=== PATIENT | male | born 1995 | race Caucasian/White ===

== ENCOUNTER 2016-04-29 07:50 | Emergency (ER) | payer BC ==
[~2016-04-29] VITALS: Ht 175.3 cm; Wt 77.1 kg
[2016-04-29 07:50] VITALS: BP 139/69; PULSE 87; RESP 18; TEMP 98.2; O2SAT 98
--- NOTE | 2016-04-29 07:50 | NUR ---
BROUGHT BACK TO BED #7 AND TRIAGED. REPORT GIVEN TO DWAYNE
--- NOTE | 2016-04-29 07:58 | NUR ---
PT AAO X 4 C/O BUMP ON R AXILLAE.WARM TO TOUCH AND TENDER TO PALPATION.PT DENIES OTHER MED HX.
--- NOTE | 2016-04-29 08:00 | NUR ---
ER at bedside examining patient.
--- NOTE | 2016-04-29 08:27 | NUR ---
PT TO RECEIVE I&D FOR ABSCESS
--- NOTE | 2016-04-29 08:45 | NUR ---
PT TOLERATED PROCEDURE WELL.
[2016-04-29 09:00] VITALS: BP 139/69; PULSE 87; RESP 18; TEMP 98.2; O2SAT 98
--- NOTE | 2016-04-29 09:00 | NUR ---
Patient given written and verbal discharge instructions and verbalizes understanding. ER MD discussed with patient the results and treatment provided. Given copies of tests performed in ER. Patient in stable condition. ID arm band removed. Rx of NORCO,CLINDAMYCIN given. Patient educated on pain management and to follow up with PMD. Pain Scale 2. Opportunity for questions provided and answered.
== END 2016-04-29 09:00 | disposition home or self-care (01) ==
LOC: SED 07:50
DX: L02.411 Cutaneous abscess of right axilla (principal); Z88.0 Allergy status to penicillin
CPT/HCPCS: 99283